=== PATIENT | female | born 1960 | race Caucasian/White ===

== ENCOUNTER → 2017-03-05 | Day surgery (SDC) | payer OTHER ==
[~2017-03-05] VITALS: Ht 172.7 cm; Wt 117.9 kg
[~2017-03-05] MED LIST: FLEXERIL 5MG TAB5 MG PO; MEDROL DOSEPAK1 PAC PO; NAPROXEN D/R500 MG PO
--- NOTE | 2017-03-05 10:29 | Operative Report ---
Operative/Inv Procedure Report Surgery Date: 03/05/17 Name of Procedure: Excision left breast epidermal inclusion cyst Pre-Operative Diagnosis: Left breast epidermal inclusion cyst Post-Operative Diagnosis: Same Estimated Blood Loss: scant Surgeon/Track Repair Laborer: BRIAN HERNANDEZ MD Anesthesia: local monitored anesthesi Specimens: Left breast mass Operative/Procedure Note Note: Patient had evidence of a symptomatic epidermal inclusion cyst the left breast and excision was recommended. She is brought to the operating room and the left breast was prepped and draped in a sterile fashion using ChloraPrep. Ancef was given prior to making incision. Each of 1% lidocaine mixed half percent Marcaine was given. A curvilinear incision was made in the inframammary fold to encompass the area of the mass. Mass was excised and appeared to be within the dermis. There is no evidence of purulence in the wound. The mass was marked for orientation with a marker at medial and lateral. The wound was irrigated with sterile saline and hemostasis was adequate. Deep tissue was approximated using interrupted Vicryl sutures, and skin was closed using a running Biosyn subcuticular stitch. Steri-Strips and sterile dressings were applied and the patient was transferred to the recovery room in satisfactory condition having tolerated the procedure well.
== END ==
LOC: STS 01:51
DX: N60.02 Solitary cyst of left breast (principal); E78.2 Mixed hyperlipidemia; E66.9 Obesity, unspecified; Z68.39 Body mass index [BMI] 39.0-39.9, adult; Z87.891 Personal history of nicotine dependence
CPT/HCPCS: J0690; J2250